=== PATIENT | female | born 1995 ===

== ENCOUNTER 2017-05-11 22:16 | Emergency (ER) | payer SELFPAY ==
[2017-05-12 01:43] VITALS: BP 135/93
--- NOTE | 2017-05-15 13:03 | ED Elopement Review ---
ED Pt Elopement review - Call Back decision Pt Call Back Decision: No action required
== END 2017-05-11 23:00 | disposition left against medical advice (07) ==
LOC: ED 22:16
DX: R10.9 Unspecified abdominal pain (principal); Z53.21 Procedure and treatment not carried out due to patient leaving prior to being seen by health care provider